=== PATIENT | male | born 1965 | race Caucasian/White ===

== ENCOUNTER 2019-03-25 03:53 | Emergency (ER) | payer MEDICAID ==
[2019-03-25] MEDS ORDERED: Sodium Chloride 0.9% 1,000 ML IV ONE (04:50)
--- NOTE | 2019-03-25 04:55 | EDM.PDOC ---
ED HPI GENERAL MEDICAL PROBLEM - General Chief Complaint: Gastrointestinal Problem Stated Complaint: TROUBLE BREATHING Time Seen by Provider: 03/25/19 04:20 Source of Information: Reports: Patient, Old Records History Limitations: Reports: No Limitations - History of Present Illness INITIAL COMMENTS - FREE TEXT/NARRATIVE: patient presents with concern for acute onset diarrhea which started approximately 3 AM this morning. Has had multiple bowel movements since arrival , no blood noted. Also has had some vomiting and notes a lot of crampy pain in his abdomen. Has not had symptoms like this before. He denies fever, but has some chills and sweats especially with the cramping is bad. has also noticed increased urination, but states that he has been drinking a lot of water and there is no burning or urgency. Some back pain along with his abdominal pain. No recent antibiotic use. No new or different foods, travel, or other exposures. Also noticed that he's been feeling chronically short of breath and then it hard to breathe, he notes there is a lot of dust in his job which she started one month ago and has history of asthma, is now requiring his inhaler approximately 10 times per day. Remote history of smoking but is not doing so currently. no chest pain. No history of diabetes. abdomen Pain Score (Numeric/FACES): 7 - Related Data Allergies Allergy/AdvReac Type Severity Reaction Status Date / Time Sulfa (Sulfonamide Allergy Hives Verified 03/25/19 04:05 Antibiotics) Home Meds: Home Meds . [Unable to Verify Home Med List] 03/25/19 [History] Past Medical History Cardiovascular History: Reports: Hypertension Gastrointestinal History: Reports: Other (See Below) Other Gastrointestinal History: states that he supposed to have a test to rule out irritable bowel syndrome but it was not done because he moved here in town. - Past Surgical History Cardiovascular Surgical History: Reports: None Social & Family History - Family History GI: Reports: Inflammatory Bowel Disease - Tobacco Use Smoking Status *Q: Former Smoker - Living Situation & Occupation Occupation: Employed (started work at [employer] 1 month ago, very [place]) ED ROS GENERAL - Review of Systems Review Of Systems: ROS reveals no pertinent complaints other than HPI. ED EXAM, GENERAL - Physical Exam Exam: See Below Free Text/Narrative:: general: Alert, very tired appearing. Mucous membranes moist, throat without erythema. Pupils equal and reactive. Neck is supple, lungs are clear throughout with no wheezes or crackles and good inspiratory and expiratory effort, patient is breathing easily and speaking in full sentences. Heart is regular rate and rhythm. Abdomen is hyperactive bowel sounds, diffusely tender throughout with no rebound or guarding, exam reproducible with auscultation. peripheral pulses + 2 in both the upper and lower extremities and there is no lower extremity edema. No obvious skin lesions. Strength is equal bilaterally and his gait is normal Course - Vital Signs Text/Narrative:: initial impression is viral gastroenteritis, although on review of the history pant actually did later state that his symptoms have been going on for days instead of since 3 AM this morning. He's had multiple copious bowel movements and is very worried about developing Crohn's which has a strong family history on his mom's side. Abdominal exam is quite tender, we'll get labs and start some IV fluid, zofran ordered. Last Recorded V/S: Last Vital Signs Temp 36.9 C 03/25/19 04:05 Pulse 71 03/25/19 06:04 Resp 17 03/25/19 06:04 BP 133/97 H 03/25/19 06:04 Pulse Ox 97 03/25/19 06:04 - Orders/Labs/Meds Orders: Active Orders 24 hr Category Date Time Status Abdomen Pelvis w Cont [CT] Stat Exams 03/25/19 06:36 Taken CDIFF TOXIN A+B GROUP [OP] Stat Lab 03/25/19 08:57 Received OVA + PARASITE EXAM Stat Lab 03/25/19 09:00 Received STOOL CULTURE Stat Lab 03/25/19 09:05 Received Sodium Chloride 0.9% [Normal Saline] 1,000 ml Med 03/25/19 06:20 Active IV ASDIRECTED Sodium Chloride 0.9% [Saline Flush] Med 03/25/19 05:30 Active 10 ml FLUSH ASDIRECTED PRN Medication Orders Sodium Chloride (Normal Saline) 1,000 mls @ 500 mls/hr IV ASDIRECTED KRISTAL Last Admin: 03/25/19 06:15 Dose: 500 mls/hr Sodium Chloride (Saline Flush) 10 ml FLUSH ASDIRECTED PRN PRN Reason: Keep Vein Open Labs: Laboratory Tests 03/25/19 03/25/19 03/25/19 Range/Units 04:55 04:55 04:55 WBC 8.1 (4.5-12.0) X10-3/uL RBC 4.75 (4.30-5.75) x10(6)uL Hgb 15.3 (13.5-17.8) g/dL Hct 44.6 (30.0-51.3) % MCV 93.9 (80-96) fL MCH 32.2 (27.7-33.6) pg MCHC 34.3 (32.2-35.4) g/dL RDW 12.4 (11.5-15.5) % Plt Count 200 (125-369) X10(3)uL MPV 7.8 (7.4-10.4) fL Neut % (Auto) 60.5 (46-82) % Lymph % (Auto) 22.4 (13-37) % [place] % (Auto) 12.9 H (4-12) % Eos % (Auto) 4 (1.0-5.0) % Baso % (Auto) 1 (0-2) % Neut # (Auto) 5.0 (1.6-8.3) # Lymph # (Auto) 1.8 (0.6-5.0) # [place] # (Auto) 1.0 (0.0-1.3) # Eos # (Auto) 0.3 (0.0-0.8) # Baso # (Auto) 0.0 (0.0-0.2) # Sodium 142 (135-145) mmol/L Potassium 3.7 (3.5-5.3) mmol/L Chloride 105 (100-110) mmol/L Carbon Dioxide 27 (21-32) mmol/L BUN 9 (7-18) mg/dL Creatinine 0.8 (0.70-1.30) mg/dL Est Cr Clr Drug Dosing 119.30 mL/min Estimated GFR (MDRD) > 60 (>60) BUN/Creatinine Ratio 11.3 (9-20) Glucose 112 (80-116) mg/dL Lactic Acid 1.4 (0.4-2.2) mmol/L Calcium 9.2 (8.6-10.2) mg/dL Total Bilirubin 0.5 (0.1-1.3) mg/dL AST 33 H (5-25) IU/L ALT 71 H (12-36) U/L Alkaline Phosphatase 77 (56-112) IU/L Total Protein 7.6 (6.0-8.0) g/dL Albumin 3.7 (3.5-5.2) g/dL Globulin 3.9 g/dL Albumin/Globulin Ratio 1.0 Amylase 49 (25-115) U/L Urine Color (YELLOW) Urine Appearance (CLEAR) Urine pH (5.0-6.5) Ur Specific [place] (1.010-1.025) Urine Protein (NEGATIVE) mg/dL Urine Glucose (UA) (NORMAL) mg/dL Urine Ketones (NEGATIVE) mg/dL Urine Occult Blood (NEGATIVE) Urine Nitrite (NEGATIVE) Urine Bilirubin (NEGATIVE) Urine Urobilinogen (NEGATIVE) mg/dL Ur Leukocyte Esterase (NEGATIVE) Urine RBC (0-5) Urine WBC (0-5) Ur Squamous Epith Cells (NS,R,O) Urine Bacteria (NS) Urine Mucus (NS) 03/25/19 Range/Units 06:03 WBC (4.5-12.0) X10-3/uL RBC (4.30-5.75) x10(6)uL Hgb (13.5-17.8) g/dL Hct (30.0-51.3) % MCV (80-96) fL MCH (27.7-33.6) pg MCHC (32.2-35.4) g/dL RDW (11.5-15.5) % Plt Count (125-369) X10(3)uL MPV (7.4-10.4) fL Neut % (Auto) (46-82) % Lymph % (Auto) (13-37) % [place] % (Auto) (4-12) % Eos % (Auto) (1.0-5.0) % Baso % (Auto) (0-2) % Neut # (Auto) (1.6-8.3) # Lymph # (Auto) (0.6-5.0) # [place] # (Auto) (0.0-1.3) # Eos # (Auto) (0.0-0.8) # Baso # (Auto) (0.0-0.2) # Sodium (135-145) mmol/L Potassium (3.5-5.3) mmol/L Chloride (100-110) mmol/L Carbon Dioxide (21-32) mmol/L BUN (7-18) mg/dL Creatinine (0.70-1.30) mg/dL Est Cr Clr Drug Dosing mL/min Estimated GFR (MDRD) (>60) BUN/Creatinine Ratio (9-20) Glucose (80-116) mg/dL Lactic Acid (0.4-2.2) mmol/L Calcium (8.6-10.2) mg/dL Total Bilirubin (0.1-1.3) mg/dL AST (5-25) IU/L ALT (12-36) U/L Alkaline Phosphatase (56-112) IU/L Total Protein (6.0-8.0) g/dL Albumin (3.5-5.2) g/dL Globulin g/dL Albumin/Globulin Ratio Amylase (25-115) U/L Urine Color Yellow (YELLOW) Urine Appearance Clear (CLEAR) Urine pH 6.5 (5.0-6.5) Ur Specific [place] 1.010 (1.010-1.025) Urine Protein Trace (NEGATIVE) mg/dL Urine Glucose (UA) Normal (NORMAL) mg/dL Urine Ketones Negative (NEGATIVE) mg/dL Urine Occult Blood Negative (NEGATIVE) Urine Nitrite Negative (NEGATIVE) Urine Bilirubin Negative (NEGATIVE) Urine Urobilinogen Normal (NEGATIVE) mg/dL Ur Leukocyte Esterase Negative (NEGATIVE) Urine RBC 0-5 (0-5) Urine WBC 0-5 (0-5) Ur Squamous Epith Cells Occasional (NS,R,O) Urine Bacteria Few H (NS) Urine Mucus Moderate H (NS) Meds: Medications Generic Name Dose Route Start Last Admin Trade Name Freq PRN Reason Stop Dose Admin Sodium Chloride 1,000 mls @ 500 mls/hr 03/25/19 06:20 03/25/19 06:15 Normal Saline IV 500 mls/hr ASDIRECTED KRISTAL Administration Sodium Chloride 10 ml 03/25/19 05:30 Saline Flush FLUSH ASDIRECTED PRN Keep Vein Open Discontinued Medications Generic Name Dose Route Start Last Admin Trade Name Freq PRN Reason Stop Dose Admin Sodium Chloride 1,000 mls @ 999 mls/hr 03/25/19 04:50 03/25/19 04:55 Normal Saline IV 03/25/19 05:50 999 mls/hr ONETIME ONE Administration Iopamidol 100 ml 03/25/19 07:38 03/25/19 08:01 Isovue-370 (76%) IV 03/25/19 07:39 100 ml ONETIME ONE Administration Ondansetron HCl 4 mg 03/25/19 05:25 03/25/19 05:29 Zofran IVPUSH 03/25/19 05:26 4 mg ONETIME ONE Administration - Re-Assessments/Exams Free Text/Narrative Re-Assessment/Exam: 03/25/19 labs reviewed and patient was feeling much improved following some IV fluid. We discussed at length pros and cons of obtaining a CT scan today, and ultimately opted to do so given his at least 3 days of symptoms so far. Stool sample also obtained and sent for studies. Free Text/Narrative Re-Assessment/Exam: 03/25/19 12:24 call received from radiologist, CT abdomen and pelvis shows pancolitis which she suspects to be infectious in origin, also some fatty infiltrate in the liver. no free air, abscess, signs of pancreatitis or other concerns are seen. These results were discussed with the patient and at this point recommended home for supportive care and close outpatient follow-up. An appointment was made for the patient next week with his primary care office. Also encouraged him to talk to them about his shortness of breath problems at work. Discussed signs or symptoms that should prompt need for reevaluation and all his questions were answered, he is in agreement with this plan. sergio script provided Departure - Departure Time of Disposition: 09:14 Disposition: Home, Self-Care 01 Condition: Good Clinical Impression: Diarrhea, Abdominal pain - Discharge Information *PRESCRIPTION DRUG MONITORING PROGRAM REVIEWED*: Not Applicable *COPY OF PRESCRIPTION DRUG MONITORING REPORT IN PATIENT LEANA: Not Applicable Instructions: Diarrhea, Adult, Viral Gastroenteritis, Adult, [id number], Food Choices to Help Relieve Diarrhea, Adult Referrals: Marina Crawford, MAILMASTER [Ordering Only Provider] - 03/29/19 8:30 am Forms: ED Department Discharge Additional Instructions: make sure to maintain good hydration --keep pushing fluids prescription given for nausea/vomiting can try very bland diet - bananas, apples, rice, toast (BRAT) or cereals followup with PCP on Friday for recheck and also regarding asthma symptoms at work - My Orders Last 24 Hours: My Active Orders 03/25/19 05:30 Sodium Chloride 0.9% [Saline Flush] 10 ml FLUSH ASDIRECTED PRN 03/25/19 06:20 Sodium Chloride 0.9% [Normal Saline] 1,000 ml IV ASDIRECTED 03/25/19 06:36 Abdomen Pelvis w Cont [CT] Stat 03/25/19 08:57 CDIFF TOXIN A+B GROUP [OP] Stat 03/25/19 09:00 OVA + PARASITE EXAM Stat 03/25/19 09:05 STOOL CULTURE Stat - Assessment/Plan Last 24 Hours: My Active Orders 03/25/19 05:30 Sodium Chloride 0.9% [Saline Flush] 10 ml FLUSH ASDIRECTED PRN 03/25/19 06:20 Sodium Chloride 0.9% [Normal Saline] 1,000 ml IV ASDIRECTED 03/25/19 06:36 Abdomen Pelvis w Cont [CT] Stat 03/25/19 08:57 CDIFF TOXIN A+B GROUP [OP] Stat 03/25/19 09:00 OVA + PARASITE EXAM Stat 03/25/19 09:05 STOOL CULTURE Stat
[2019-03-25] MEDS ORDERED: Ondansetron 4 MG/2 ML SDV IVPUSH ONE (05:25)
[2019-03-25] MEDS ORDERED: Sodium Chloride 0.9% 10 ML Syringe FLUSH PRN (05:30)
[2019-03-25] MEDS ORDERED: Sodium Chloride 0.9% 1,000 ML IV SCH (06:20)
[2019-03-25] MEDS ORDERED: Iopamidol 755 Mg/ML 100 ML Bottle IV ONE (07:38)
== END 2019-03-25 09:45 | disposition home or self-care (01) ==
LOC: FB.ED 03:53
DX: R19.7 Diarrhea, unspecified (principal); R10.9 Unspecified abdominal pain; I10 Essential (primary) hypertension; Z88.2 Allergy status to sulfonamides; Z87.891 Personal history of nicotine dependence
CPT/HCPCS: 36415; 74177; 80053; 81001; 82150; 82270; 83605; 85025; 87045; 87046; 87177; 87209; 87324; 87427; 96361; 96374; 99284; J2405; J7030; Q9967

== ENCOUNTER 2019-06-06 18:26 | Emergency (ER) | payer MEDICAID, OTHER ==
--- NOTE | 2019-06-06 19:17 | EDM.PDOC ---
ED HPI GENERAL MEDICAL PROBLEM - General Chief Complaint: General Stated Complaint: LUMP ON LOWER LIP Time Seen by Provider: 06/06/19 19:00 Source of Information: Reports: Patient History Limitations: Reports: No Limitations - History of Present Illness INITIAL COMMENTS - FREE TEXT/NARRATIVE: pt c/o painful sore at lower lip that started today, denies any other associated sx with this, report having this few years ago, denied any known sick contact. denies any significant morbidities. Right Lower Lip Pain Score (Numeric/FACES): 8 - Related Data Allergies Allergy/AdvReac Type Severity Reaction Status Date / Time Sulfa (Sulfonamide Allergy Hives Verified 06/06/19 19:02 Antibiotics) Home Meds: Home Meds valACYclovir HCl [Valtrex] 500 mg PO BID 7 Days #14 tablet 06/06/19 [Rx] Past Medical History Cardiovascular History: Reports: Hypertension Gastrointestinal History: Reports: Other (See Below) Other Gastrointestinal History: states that he supposed to have a test to rule out irritable bowel syndrome but it was not done because he moved here in town. - Past Surgical History Cardiovascular Surgical History: Reports: None Social & Family History - Family History Family Medical History: Noncontributory GI: Reports: Inflammatory Bowel Disease - Caffeine Use Caffeine Use: Reports: Soda - Living Situation & Occupation Occupation: Employed (started work at [employer] 1 month ago, very [place]) ED ROS GENERAL - Review of Systems Review Of Systems: See Below Constitutional: Reports: No Symptoms HEENT: Denies: Eye Pain, Throat Pain, Vision Change Respiratory: Reports: No Symptoms Cardiovascular: Reports: No Symptoms ED EXAM, GENERAL - Physical Exam Exam: See Below Exam Limited By: No Limitations General Appearance: Alert, No Apparent Distress Throat/Mouth: Other (inflamed tender sore at right side of lower lip , no drainage. ) Neck: Normal Inspection, Full Range of Motion Respiratory/Chest: No Respiratory Distress, Lungs Clear Cardiovascular: Normal Peripheral Pulses, Regular Rate, Rhythm Course - Vital Signs Text/Narrative:: pt has herpes , Valtrex and supportive mng were prescribed. nurse notes were reviewed. Last Recorded V/S: Last Vital Signs Temp 36.9 C 06/06/19 18:30 Pulse 70 06/06/19 18:30 Resp 20 06/06/19 18:30 BP 188/99 H 06/06/19 18:30 Pulse Ox 98 06/06/19 18:30 Departure - Departure Time of Disposition: 19:17 Disposition: Home, Self-Care 01 Clinical Impression: Herpes zoster - Discharge Information Referrals: Koha Swenson MD [Primary Care Provider] -
== END 2019-06-06 19:29 | disposition home or self-care (01) ==
LOC: FB.ED 18:26
DX: B02.9 Zoster without complications (principal); Z88.2 Allergy status to sulfonamides
CPT/HCPCS: 99282

== ENCOUNTER 2020-04-06 03:39 | Emergency (ER) | payer MEDICAID, OTHER ==
[2020-04-06] MEDS ORDERED: traMADol 50 MG Tab PO ONE (04:01)
[2020-04-06] MEDS ORDERED: Ketorolac 60 MG/2 ML SDV IM ONE (04:01)
--- NOTE | 2020-04-06 04:09 | EDM.PDOC ---
ED HPI GENERAL MEDICAL PROBLEM - General Chief Complaint: Lower Extremity Injury/Pain Stated Complaint: PINKY TOE INJURY Time Seen by Provider: 04/06/20 04:00 Source of Information: Reports: Patient History Limitations: Reports: No Limitations - History of Present Illness INITIAL COMMENTS - FREE TEXT/NARRATIVE: Patient presented to the ED because of left 5th toe injury. He stubbed his toe against the door frame and since then he c/o pain and swelling. Left Toe-Little Pain Score (Numeric/FACES): 10 - Related Data Allergies Allergy/AdvReac Type Severity Reaction Status Date / Time Sulfa (Sulfonamide Allergy Hives Verified 04/06/20 03:51 Antibiotics) Home Meds: Home Meds Cyclobenzaprine [Flexeril] 10 mg PO TID PRN 04/06/20 [History] Ibuprofen 800 mg PO Q8H PRN #30 tablet 04/06/20 [Rx] PARoxetine HCl [Paxil] 20 mg PO DAILY 04/06/20 [History] buPROPion HCL [Wellbutrin Xl] 150 mg PO DAILY 04/06/20 [History] hydroCHLOROthiazide [Hydrochlorothiazide] 25 mg PO DAILY 04/06/20 [History] lisinopriL [Lisinopril] 40 mg PO 04/06/20 [History] traMADol [Ultram] 100 mg PO Q8H PRN #20 tab 04/06/20 [Rx] Past Medical History Cardiovascular History: Reports: Hypertension Gastrointestinal History: Reports: Other (See Below) Other Gastrointestinal History: states that he supposed to have a test to rule out irritable bowel syndrome but it was not done because he moved here in town. Psychiatric History: Reports: Depression - Past Surgical History Cardiovascular Surgical History: Reports: None Social & Family History - Family History Family Medical History: Noncontributory GI: Reports: Inflammatory Bowel Disease - Tobacco Use Smoking Status *Q: Never Smoker - Caffeine Use Caffeine Use: Reports: Energy Drinks Other Caffeine Use: daily - Recreational Drug Use Recreational Drug Use: No - Living Situation & Occupation Occupation: Employed (started work at [employer] 1 month ago, very [place]) Review of Systems - Review of Systems Review Of Systems: See Below Constitutional: Reports: No Symptoms Eyes: Reports: No Symptoms Ears: Reports: No Symptoms Nose: Reports: No Symptoms Mouth/Throat: Reports: No Symptoms Respiratory: Reports: No Symptoms Cardiovascular: Reports: No Symptoms GI/Abdominal: Reports: No Symptoms Genitourinary: Reports: No Symptoms Musculoskeletal: Reports: Foot Pain Skin: Reports: No Symptoms ED EXAM, GENERAL - Physical Exam Exam: See Below Exam Limited By: No Limitations General Appearance: Alert, No Apparent Distress Ears: Normal External Exam, Normal Canal Nose: Normal Inspection, Normal Mucosa Throat/Mouth: Normal Inspection, Normal Lips, Normal Teeth Head: Atraumatic, Normocephalic Neck: Normal Inspection, Supple, Non-Tender Respiratory/Chest: No Respiratory Distress, Lungs Clear, Normal Breath Sounds Cardiovascular: Normal Peripheral Pulses, Regular Rate, Rhythm, No Edema GI/Abdominal: Normal Bowel Sounds, Soft, Non-Tender, No Organomegaly Back Exam: Normal Inspection, Full Range of Motion Extremities: Normal Inspection, Other (tenderness left 5th toe) Course - Vital Signs Text/Narrative:: xray-left foot/5th toe Toradol 60 mg IM x1 Tramadol 100 mg po x1 Last Recorded V/S: Last Vital Signs Temp 36.6 C 04/06/20 03:55 Pulse 77 04/06/20 03:55 Resp 20 04/06/20 03:55 BP 156/96 H 04/06/20 03:55 Pulse Ox 97 04/06/20 03:55 - Orders/Labs/Meds Meds: Medications Discontinued Medications Generic Name Dose Route Start Last Admin Trade Name Freq PRN Reason Stop Dose Admin Ketorolac Tromethamine 60 mg 04/06/20 04:01 04/06/20 04:07 Toradol IM 04/06/20 04:02 60 mg ONETIME ONE Administration Tramadol HCl 100 mg 04/06/20 04:01 04/06/20 04:07 Ultram PO 04/06/20 04:02 100 mg ONETIME ONE Administration Departure - Departure Time of Disposition: 04:30 Disposition: Home, Self-Care 01 Condition: Good Clinical Impression: Toe injury - Discharge Information Prescriptions: Ibuprofen 800 mg PO Q8H PRN #30 tablet PRN Reason: Pain traMADol [Ultram] 100 mg PO Q8H PRN #20 tab PRN Reason: Pain Referrals: Khoa Swenson MD [Primary Care Provider] - Forms: ED Department Discharge Additional Instructions: Return to the ED for an outpatient xray of your left foot/5th toe Take tramadol 100 mg with ibuprofen 800 mg and tylenol 1000 mg every 8 hours as needed for pain. Take them all at the same time for better pain relief. We will call you once we get the final xray reading of your foot/toe. Sepsis Event Note (ED) - Evaluation Sepsis Screening Result: No Definite Risk - Focused Exam Vital Signs: Vital Signs Temp Pulse Resp BP Pulse Ox 04/06/20 03:55 36.6 C 77 20 156/96 H 97
== END 2020-04-06 04:20 | disposition home or self-care (01) ==
LOC: FB.ED 03:39
DX: S99.922A Unspecified injury of left foot, initial encounter (principal); F32.9 Major depressive disorder, single episode, unspecified; I10 Essential (primary) hypertension; Z88.2 Allergy status to sulfonamides; Z79.899 Other long term (current) drug therapy; W22.8XXA Striking against or struck by other objects, initial encounter
CPT/HCPCS: 96372; 99283; A9270; J1885